=== PATIENT | male | born 1965 | race Caucasian/White ===

== ENCOUNTER 2017-03-03 19:09 | Emergency (ER) | payer BC ==
[2017-03-03 20:15] VITALS: BP 146/86
[2017-03-03] MEDS ORDERED: DOXYcycline CAP(*) 100 MG PO ONE (20:38)
--- NOTE | 2017-03-03 20:52 | UC ---
Skin Complaint HPI - HPI Summary HPI Summary: PATIENT PRESENTS TO WITH CC OF TICK BITE UNDER THE RIGHT ARM NEAR THE ARMPIT. HE FIRST NOTICED THE TICK THIS MORNING AND WAS IN THE [place] YESTERDAY. HE STATES THERE IS A RED RING AROUND THE AREA AND IS CONCERNED FOR LYME. HE WAS ABLE TO DISLODGE THE TICK AND FEELS HE MAY HAVE GOTTEN ALL OF IT, BUT CAN'T BE SURE. DENIES MUSCLE ACHES, PAIN AT THE SITE, YANG, NEUROLOGICAL SXS. PATIENT HAD A TICK BITE LAST YEAR AND WAS ABLE TO DISLODGE IT WELL. PATIENT IS OTHERWISE HEALTHY. - History of Current Complaint Time Seen by Provider: 03/03/17 20:19 Stated Complaint: TICK BITE Hx Obtained From: Patient Onset/Duration: Sudden Onset Skin Exposure Onset/Duration: Minutes Ago Timing: Constant Onset Severity: Mild Current Severity: Mild Pain Intensity: 1 Pain Scale Used: 0-10 Numeric Location: Discrete Character: Pain, Redness Aggravating: Nothing Alleviating: Nothing Associated Signs & Symptoms: Positive: Negative Related History: Insect Bite/Sting - Allergy/Home Medications Allergies/Adverse Reactions: Allergies Allergy/AdvReac Type Severity Reaction Status Date / Time fish eggs Allergy Severe Hives Uncoded 03/03/17 19:59 Home Medications: Home Medications NK [No Home Medications Reported] 03/03/17 [History Confirmed 03/03/17] Review of Systems Constitutional: Negative Skin: Other - Tick removal Using proper technique for tick removal is important. Several methods of tick removal have been advocated. A study that evaluated the use of forceps or protected fingers, or the application of petroleum jelly, fingernail mexican, isopropyl alcohol, or a hot match, found that only the use of forceps or protected fingers resulted in the satisfactory removal of 29 adult [place] dog ticks without leaving the mouthparts in the host skin [12]. The proper technique for removal of the attached tick includes the following steps: ?If available, use tweezers or small forceps to grasp the tick as close to the skin surface as possible. In the absence of tweezers, use paper or cloth to protect the fingers during tick extraction. ?Pull straight up gently but firmly, using steady pressure. Do not jerk or twist. ?Do not squeeze, crush, or puncture the body of the tick, since its fluids may contain infectious agents. ?Disinfect the skin thoroughly after removing the tick and wash hands with soap and water. ?If sections of the mouthparts of the tick remain in the skin, they should be left alone as they will normally be expelled spontaneously. ?After the tick removal and the skin cleansing, the person bitten (or the parents) should observe the area for the development of EM for up to 30 days following exposure. Components of tick saliva can cause transient erythema that should not be confused with EM. ?Since the tick usually needs to be attached for two to three days before transmission of the Lyme disease agent occurs, removal of the tick within this time frame often prevents the infection Respiratory: Negative Cardiovascular: Negative Genitourinary: Dysuria Neurovascular: Negative Musculoskeletal: Negative Neurological: Negative Psychological: Negative All Other Systems Reviewed And Are Negative: Yes PMH/Surg Hx/FS Hx/Imm Hx Previously Healthy: Yes - Surgical History Surgical History: None - Family History Known Family History: Positive: Unknown - Social History Occupation: Employed Full-time Lives: With Family Alcohol Use: Occasionally Substance Use Type: None Smoking Status (MU): Never Smoked Tobacco Amount Used/How Often: every day Have You Smoked in the Last Year: No Physical Exam Triage Information Reviewed: Yes Appearance: Well-Appearing, Well-Nourished Vital Signs: Initial Vital Signs Temp 99.3 F 03/03/17 20:00 Pulse 93 03/03/17 20:00 Resp 18 03/03/17 20:00 BP 146/86 03/03/17 20:00 Pulse Ox 100 03/03/17 20:00 Vital Signs Reviewed: Yes Eye Exam: Normal Eyes: Positive: Conjunctiva Clear Dental Exam: Normal Neck exam: Normal Neck: Positive: Supple, Nontender Respiratory: Positive: Lungs clear Cardiovascular: Positive: RRR Abdominal Exam: Normal Abdomen Description: Positive: Nontender Neurological Exam: Normal Neurological: Positive: Alert Psychological Exam: Normal Psychological: Positive: Normal Response To Family Skin: Positive: significant lesion(s) - SEE TREATMENT Course/Dx - Course Course Of Treatment: SMALL 1MM BLACK LESION SURROUNDED BY RED RING AND ERYTHEMA. TREATED PROPHYLACTICALLY FOR LYME. TICK WAS ATTACHED <36 HOURS. FOLLOW UP WITH PCP. EDUCATED PATIENT ABOUT LYME, WHAT SIGNS TO LOOK FOR AND THE NEED TO BE ATTACHED 48 HOURS FOR TRANSMISSION. PATIENT AGREES TO FOLLOW UP AND IS OK WITH DOXYCYLINE 200MG A PROPHYLAXIS. - Differential Diagnoses - Skin Complaint Differential Diagnoses: Erythema Multiforme, Local Allergic Reaction, Tick Born Illness - Diagnoses Provider Diagnoses: TICK BITE Discharge - Discharge Plan Condition: Stable Disposition: HOME Patient Education Materials: Lyme Disease (ED), Tick Bite (ED) Referrals: Todd Saeed MD [Primary Care Provider] - Additional Instructions: Tick removal Using proper technique for tick removal is important. Several methods of tick removal have been advocated. A study that evaluated the use of forceps or protected fingers, or the application of petroleum jelly, fingernail mexican, isopropyl alcohol, or a hot match, found that only the use of forceps or protected fingers resulted in the satisfactory removal of 29 adult [place] dog ticks without leaving the mouthparts in the host skin [12]. The proper technique for removal of the attached tick includes the following steps: If available, use tweezers or small forceps to grasp the tick as close to the skin surface as possible. In the absence of tweezers, use paper or cloth to protect the fingers during tick extraction. Pull straight up gently but firmly, using steady pressure. Do not jerk or twist. Do not squeeze, crush, or puncture the body of the tick, since its fluids may contain infectious agents. Disinfect the skin thoroughly after removing the tick and wash hands with soap and water. If sections of the mouthparts of the tick remain in the skin, they should be left alone as they will normally be expelled spontaneously. After the tick removal and the skin cleansing, the person bitten (or the parents ) should observe the area for the development of EM for up to 30 days following exposure. Components of tick saliva can cause transient erythema that should not be confused with EM. Since the tick usually needs to be attached for two to three days before transmission of the Lyme disease agent occurs, removal of the tick within this time frame often prevents the infection DOXYCYCLINE 200MG ONE TIME DOSE
== END 2017-03-03 21:00 | disposition home or self-care (01) ==
LOC: UCEAST 19:09
DX: S40.861A Insect bite (nonvenomous) of right upper arm, initial encounter (principal); W57.XXXA Bitten or stung by nonvenomous insect and other nonvenomous arthropods, initial encounter; Y93.9 Activity, unspecified; Y99.9 Unspecified external cause status
CPT/HCPCS: 99202; A9270-GY; G0463

== ENCOUNTER 2018-06-30 13:01 | Emergency (ER) | payer BC ==
[2018-06-30 13:32] VITALS: BP 144/102
--- NOTE | 2018-06-30 13:44 | ED ---
Respiratory - HPI Summary HPI Summary: 52-year-old male presents to sore throat and cough for the past couple days. He states he is not able to sleep well due to the cough. He states he has been coughing up mucous. He admits to occasional wheezing. He is nonsmoker. He does chew tobacco. He denies any chest pain. No abdominal pain. No ear or sinus pressure. No headache. He has no medical conditions. No history of asthma or COPD. - History of Current Complaint Chief Complaint: UCGeneralIllness Stated Complaint: CONGESTION Time Seen by Provider: 06/30/18 13:35 Pain Intensity: 0 - Allergy/Home Medications Allergies/Adverse Reactions: Allergies Allergy/AdvReac Type Severity Reaction Status Date / Time fish eggs Allergy Severe Hives Uncoded 06/30/18 13:22 Home Medications: Home Medications guaiFENesin [Mucinex] 1,200 mg PO ONCE 06/30/18 [History Confirmed 06/30/18] PMH/Surg Hx/FS Hx/Imm Hx Endocrine/Hematology History: Denies: Hx Diabetes Cardiovascular History: Denies: Hx Hypertension, Hx Pacemaker/ICD History: Denies: Hx Renal Disease Sensory History: Denies: Hx Hearing Aid Psychiatric History: Denies: Hx Panic Disorder - Cancer History Cancer Type, 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 Negative: Shortness Of Breath All Other Systems Reviewed And Are Negative: Yes Physical Exam Triage Information Reviewed: Yes Vital Signs On Initial Exam: Initial Vitals Temp Pulse Resp BP Pulse Ox 99.7 F 103 18 144/102 99 06/30/18 13:23 06/30/18 13:23 06/30/18 13:23 06/30/18 13:23 06/30/18 13:23 Vital Signs Reviewed: Yes Appearance: Positive: Well-Appearing Skin: Positive: Warm, Dry Head/Face: Positive: Normal Head/Face Inspection Eyes: Positive: Normal, Conjunctiva Clear ENT: Positive: Normal ENT inspection, Pharynx normal, TMs normal Respiratory/Lung Sounds: Positive: Clear to Auscultation, Breath Sounds Present Cardiovascular: Positive: Normal, RRR Abdomen Description: Positive: Nontender, Soft Bowel Sounds: Positive: Present Musculoskeletal: Positive: Normal Neurological: Positive: Normal Psychiatric: Positive: Normal Diagnostics - Vital Signs Vital Signs Temp Pulse Resp BP Pulse Ox 06/30/18 13:23 99.7 F 103 18 144/102 99 - Laboratory Lab Statement: Any lab studies that have been ordered have been reviewed, and results considered in the medical decision making process. Disposition - Course Course Of Treatment: 52-year-old male admits to sore throat and cough for the past couple days. He states he is not able to sleep well due to the cough. He states he has been coughing up mucous. He admits to occasional wheezing. He is nonsmoker. He does chew tobacco. He denies any chest pain. No abdominal pain. No ear or sinus pressure. No headache. He has no medical conditions. No history of asthma or COPD. on exam lungs CTA. pharynx normal. will treat with prednisone, tessaolon, and inhaler. patient bp is elevated so will have follow up with primary. patient understand and agrees with plan. - Differential Dx - Cardiopulmonary Differential Diagnoses - Cardiopulmonary: Bronchitis, Influenza, Lower Resp Infection - Diagnoses Provider Diagnoses: Bronchitis, Elevated blood pressure reading Discharge - Sign-Out/Discharge Documenting (check all that apply): Patient Departure - Discharge Plan Condition: Good Disposition: HOME Prescriptions: Albuterol HFA INHALER* [Ventolin HFA Inhaler*] 1 puff INH Q4H PRN #1 mdi PRN Reason: Cough Benzonatate CAP* [Tessalon 100 MG CAP*] 100 mg PO TID #21 cap predniSONE TAB* [Deltasone TAB*] 50 mg PO DAILY #5 tab Patient Education Materials: Acute Bronchitis (ED) Referrals: [facility] [Outside] Additional Instructions: Use Tessalon three times a day for cough Use inhaler one puff every 4 hours for cough as needed Take steroid once a day for 5 days Cough can last up to 4 weeks Establish care with primary Return to ED if develop any new or worsening symptoms - Billing Disposition and Condition Condition: GOOD Disposition: Home Attestation Statement User Type: Provider - I was available for consult. This patient was seen by the SHAVONNE. The patient was not presented to, seen by, or examined by me. -Therese
== END 2018-06-30 14:15 | disposition home or self-care (01) ==
LOC: UCEAST 13:01
DX: J40 Bronchitis, not specified as acute or chronic (principal); R03.0 Elevated blood-pressure reading, without diagnosis of hypertension; F17.220 Nicotine dependence, chewing tobacco, uncomplicated
CPT/HCPCS: 99212; G0463